=== PATIENT | male | born 1955 | race Caucasian/White ===

== ENCOUNTER 2017-12-13 06:06 | Day surgery (SDC) | payer OTHER ==
[~2017-12-13] VITALS: Ht 170.2 cm; Wt 81.6 kg
[2017-12-13] MEDS ORDERED: ATOR40TA PO (07:41)
[2017-12-13] MEDS ORDERED: LISI-420 PO (07:41)
[2017-12-13] MEDS ORDERED: METF1000 PO (07:41)
[2017-12-13] MEDS ORDERED: LIDOCAINE 2% 100 MG/5 ML UJET TP ONE (08:38)
== END 2017-12-13 09:20 | disposition home or self-care (01) ==
LOC: MDS 06:06 → MMU 06:07 → MDS 09:20
PROVIDERS: ATTEND Internal Medicine Gastroenterology
DX: Z12.11 Encounter for screening for malignant neoplasm of colon (principal); K57.30 Diverticulosis of large intestine without perforation or abscess without bleeding; I10 Essential (primary) hypertension; E11.9 Type 2 diabetes mellitus without complications; E66.3 Overweight; E78.5 Hyperlipidemia, unspecified; Z98.890 Other specified postprocedural states; Z79.899 Other long term (current) drug therapy
CPT/HCPCS: 82948